=== PATIENT | male | born 1970 | race Caucasian/White ===

== ENCOUNTER 2016-06-27 16:42 | Inpatient (IN) | payer OTHER ==
[~2016-06-27] VITALS: Ht 188 cm; Wt 117.8 kg
[2016-06-27 16:43] VITALS: BP 184/87; PULSE 105; RESP 16; TEMP 97.9; O2SAT 95
[2016-06-27] MEDS ORDERED: SODIUM CHLOR 0.9% 1000 ML INJ 1,000 ML IV ONE (16:56)
[2016-06-27] MEDS ORDERED: PIPERACIL-TAZO 4.5 GM PREMIX 100 ML IV STA (16:56)
[2016-06-27] MEDS ORDERED: VANCOMYCIN INJ 1,000 MG in SODIUM CHLOR 0.9% 250 ML INJ 250 ML IV STA (16:56)
--- NOTE | 2016-06-27 17:05 | PD ---
HPI Chief Complaint: Diabetic Time Seen by Provider: 16:56 Travel History International Travel<30 days: No Contact w/Intl Traveler<30days: No Traveled to known affect area: No History of Present Illness HPI 45-year-old male with history of diabetes, has had a chronic left foot sore that is being followed by podiatry for several weeks, but was sent in by podiatry today because they are concern of possible underlying osteomyelitis. They would like him to be admitted for IV antibiotics and to get MRI scanning to rule out osteomyelitis. Modifying Factors: None Associated Signs & Symptoms: Left foot ulcer, diabetic foot ulcer, possible osteomyelitis Risk Factors: Diabetic PFSH Past Medical History Diabetes: Yes Social History Tobacco Use: No Allergies-Medications (Allergen,Severity, Reaction): Coded Allergies: No Known Allergies (Unverified , 06/27/16) Reported Meds & Prescriptions Reported Meds & Active Scripts Active Reported Multi For Him 50+ (Multiple Vitamins W/ Minerals) 1 Tab Tab 1 Tab PO DAILY Vitamin D3 (Cholecalciferol) 10,000 Unit Cap 10,000 Units PO DAILY Gabapentin 100 Mg Cap 200 Mg PO HS Losartan (Losartan Potassium) 50 Mg Tab 50 Mg PO DAILY Glimepiride 4 Mg Tab 4 Mg PO DAILY Take with breakfast or first main meal Crestor (Rosuvastatin Calcium) 40 Mg Tab 40 Mg PO HS Gemfibrozil 600 Mg Tab 600 Mg PO BIDAC Take 30 minutes prior to breakfast and dinner. Novolog Flexpen Inj (Insulin Aspart) 300 Unit/3 Ml Pen Units SQ TID Lantus Solostar Pen Inj (Insulin Glargine) 300 Unit/3 Ml Pen 40 Units SQ HS Review of Systems Except as stated in HPI: all other systems reviewed are Neg Physical Exam Narrative GENERAL: Well-nourished, well-developed middle age white male patient in no acute distress. SKIN: Warm and dry. HEAD: Normocephalic. NECK: Supple, trachea midline. CARDIOVASCULAR: Regular rate and rhythm without murmurs, gallops, or rubs. RESPIRATORY: Breath sounds equal bilaterally. No accessory muscle use. GASTROINTESTINAL: Abdomen soft, non-tender, nondistended. MUSCULOSKELETAL: No cyanosis, or edema. BACK: Nontender without obvious deformity. No CVA tenderness. Left foot: There is a notable 2 x 5 cm left foot ulcer with surrounding erythema and drainage. Data Data Last Documented VS Vital Signs Date Time Temp Pulse Resp B/P Pulse Ox O2 Delivery O2 Flow Rate FiO2 06/27/16 17:45 94 21 181/94 96 Nasal Cannula 2.0 06/27/16 16:43 97.9 Orders Complete Blood Count With Diff (06/27/16 16:56) Comprehensive Metabolic Panel (06/27/16 16:56) Lactic Acid Sepsis Protocol (06/27/16 16:56) Blood Culture (06/27/16 16:56) Blood Glucose (06/27/16 16:56) Ecg Monitoring (06/27/16 16:56) Iv Access Insert/Monitor (06/27/16 16:56) Oximetry (06/27/16 16:56) Oxygen Administration (06/27/16 16:56) Piperacil-Tazo 4.5 Gm Premix (Zosyn 4.5 (06/27/16 16:56) Vancomycin Inj (Vancomycin Inj) (06/27/16 16:56) Sodium Chlor 0.9% 1000 Ml Inj (Ns 1000 M (06/27/16 16:56) Insulin Human Regular Inj (Novolin R Inj (06/27/16 18:45) Labs Laboratory Tests Test 06/27/16 17:25 White Blood Count 12.7 TH/MM3 Red Blood Count 4.81 MIL/MM3 Hemoglobin 13.7 GM/DL Hematocrit 41.3 % Mean Corpuscular Volume 85.9 FL Mean Corpuscular Hemoglobin 28.6 PG Mean Corpuscular Hemoglobin 33.3 % Concent Red Cell Distribution Width 13.0 % Platelet Count 198 TH/MM3 Mean Platelet Volume 9.9 FL Neutrophils (%) (Auto) 85.2 % Lymphocytes (%) (Auto) 8.9 % Monocytes (%) (Auto) 5.1 % Eosinophils (%) (Auto) 0.4 % Basophils (%) (Auto) 0.4 % Neutrophils # (Auto) 10.9 TH/MM3 Lymphocytes # (Auto) 1.1 TH/MM3 Monocytes # (Auto) 0.6 TH/MM3 Eosinophils # (Auto) 0.1 TH/MM3 Basophils # (Auto) 0.0 TH/MM3 CBC Comment DIFF FINAL Differential Comment Sodium Level 128 MEQ/L Potassium Level 5.2 MEQ/L Chloride Level 97 MEQ/L Carbon Dioxide Level 19.0 MEQ/L Anion Gap 12 MEQ/L Blood Urea Nitrogen 29 MG/DL Creatinine 1.89 MG/DL Estimat Glomerular Filtration 39 ML/MIN Rate Random Glucose 697 MG/DL Lactic Acid Level 0.5 mmol/L Calcium Level 8.3 MG/DL Total Bilirubin 0.4 MG/DL Aspartate Amino Transf 11 U/L (AST/SGOT) Alanine Aminotransferase 23 U/L (ALT/SGPT) Alkaline Phosphatase 67 U/L Total Protein 6.8 GM/DL Albumin 2.6 GM/DL MDM Medical Decision Making Medical Screen Exam Complete: Yes Emergency Medical Condition: Yes Medical Record Reviewed: Yes Interpretation(s) Laboratory Tests Test 06/27/16 17:25 White Blood Count 12.7 TH/MM3 (4.0-11.0) Neutrophils (%) (Auto) 85.2 % (16.0-70.0) Lymphocytes (%) (Auto) 8.9 % (9.0-44.0) Neutrophils # (Auto) 10.9 TH/MM3 (1.8-7.7) Sodium Level 128 MEQ/L (136-145) Potassium Level 5.2 MEQ/L (3.5-5.1) Chloride Level 97 MEQ/L (98-107) Carbon Dioxide Level 19.0 MEQ/L (21.0-32.0) Blood Urea Nitrogen 29 MG/DL (7-18) Creatinine 1.89 MG/DL (0.60-1.30) Estimat Glomerular Filtration 39 ML/MIN (>89) Rate Random Glucose 697 MG/DL (74-106) Calcium Level 8.3 MG/DL (8.5-10.1) Aspartate Amino Transf 11 U/L (15-37) (AST/SGOT) Albumin 2.6 GM/DL (3.4-5.0) Differential Diagnosis Foot ulcer, rule out osteomyelitis, hyperglycemia, rule out metabolic issues Narrative Course Patient was sent in master pilot to be admitted for further treatment and to get MRI for osteomyelitis. IV antibiotics initiated in the ER after cultures were drawn. Lab work returns showing significant hyperglycemia. IV fluids and insulin was given in the ER. At this point, my plan would be to admit the patient for further treatment. The case was discussed with Dr. Prasad for admission. Diagnosis Primary Impression: Diabetic foot ulcer Admitting Information Admitting Physician Requests: Admit Adolph Peralta MD Jun 27, 2016 17:05
[2016-06-27 17:19] VITALS: O2SAT 93
[2016-06-27 17:45] VITALS: BP 181/94; PULSE 94; RESP 21; O2SAT 96
[2016-06-27 17:50] LABS: AUTOMATED NEUTROPHIL # 10.9 TH/MM3 (1.8-7.7); BASOPHIL % 0.4 % (0.0-2.0); EOSINOPHIL # 0.1 TH/MM3 (0-0.4); EOSINOPHIL % 0.4 % (0.0-4.0); HEMATOCRIT 41.3 % (39.0-51.0); HEMO FLAGS DIFF FINAL; LYMPH % 8.9 % (9.0-44.0); LYMPHOCYTE # 1.1 TH/MM3 (1.0-4.8); MEAN CELL VOLUME 85.9 FL (80.0-100.0); MEAN CORPUSCULAR HEMOGLOBIN 28.6 PG (27.0-34.0); MEAN CORPUSCULAR HGB CONC 33.3 % (32.0-36.0); MONO % 5.1 % (0.0-8.0); NEUT % 85.2 % (16.0-70.0); PLATELET COUNT 198 TH/MM3 (150-450); RED BLOOD COUNT 4.81 MIL/MM3 (4.50-5.90); WHITE BLOOD COUNT 12.7 TH/MM3 (4.0-11.0)
[2016-06-27] MEDS ORDERED: MULTTAB23 PO (17:58)
[2016-06-27] MEDS ORDERED: GABA100C4 PO (17:58)
[2016-06-27] MEDS ORDERED: ROSU40 PO (17:58)
[2016-06-27] MEDS ORDERED: GLIM4TAB PO (17:58)
[2016-06-27] MEDS ORDERED: CHOL1CAP24 PO (17:58)
[2016-06-27] MEDS ORDERED: NOVOINJ3 SQ (17:58)
[2016-06-27] MEDS ORDERED: LANTINJ SQ (17:58)
[2016-06-27] MEDS ORDERED: GEMF600T PO (17:58)
[2016-06-27] MEDS ORDERED: LOSA50TA PO (17:58)
[2016-06-27 18:17] LABS: ALKALINE PHOSPHATASE 67 U/L (45-117); ALT (GPT) 23 U/L (12-78); ANION GAP 12 MEQ/L (5-15); AST (GOT) 11 U/L (15-37); BLOOD UREA NITROGEN 29 MG/DL (7-18); CHLORIDE 97 MEQ/L (98-107); GLOMERULAR FILTRATION RATE 39 ML/MIN (>89); POTASSIUM 5.2 MEQ/L (3.5-5.1); SODIUM (NA) 128 MEQ/L (136-145); TOTAL BILIRUBIN ADULT 0.4 MG/DL (0.2-1.0)
[2016-06-27] MEDS ORDERED: INSULIN HUMAN REGULAR 1,000 UNITS/10 ML VIAL IV PUSH ONE (18:45)
[2016-06-27] MEDS ORDERED: NALOXONE HCL 0.4 MG/ML AMP IV PRN (19:45)
[2016-06-27] MEDS ORDERED: BISACODYL 10 MG SUPP PR PRN (19:45)
[2016-06-27] MEDS ORDERED: ONDANSETRON HCL 4 MG/2 ML VIAL IVP PRN (19:45)
[2016-06-27] MEDS ORDERED: SODIUM CHLORIDE 0.9% FLUSH 5 ML FLUSH FLUSH PRN (19:45)
[2016-06-27] MEDS ORDERED: Vancomycin Consult Pharmacy 1 EA OTHER SCH (19:45)
--- NOTE | 2016-06-27 19:56 | HHI.HP ---
HPI Service CP Hospitalists Primary Care Physician Non-Staff Admission Diagnosis diabetic foot ulcer/hyperglycemia Chief Complaint: patient sent by podiatry for left foot large ulcer infection for IV antibiotics Travel History International Travel<30 Days: No Contact w/Intl Traveler <30 Da: No Traveled to Known Affected Are: No History of Present Illness 45 y/o white male with history of diabetes with chronic left foot ulcer draining has had some debridement today and podiatry sent patient for admit and requests MRI and IV antibiotics. Patient with long standing dibetes and has had difficulty with insurance with coverage for medications is on flex pen and lantus and glucose is over 600. Patient does have pain to left foot with large ulcer draining and now has bandage. Review of Systems Musculoskeletal: COMPLAINS OF: Joint pain Past Family Social History Past Medical History insulin dependent diabetes ,hyperlipidemia,hypertension,neuropathy,pancreatitis times 4 Past Surgical History gallbladder foot injury in past Reported Medications Multi For Him 50+ (Multiple Vitamins W/ Minerals) 1 Tab Tab 1 Tab PO DAILY Vitamin D3 (Cholecalciferol) 10,000 Unit Cap 10,000 Units PO DAILY Gabapentin 100 Mg Cap 200 Mg PO HS Losartan (Losartan Potassium) 50 Mg Tab 50 Mg PO DAILY Glimepiride 4 Mg Tab 4 Mg PO DAILY Take with breakfast or first main meal Crestor (Rosuvastatin Calcium) 40 Mg Tab 40 Mg PO HS Gemfibrozil 600 Mg Tab 600 Mg PO BIDAC Take 30 minutes prior to breakfast and dinner. Novolog Flexpen Inj (Insulin Aspart) 300 Unit/3 Ml Pen Units SQ TID Lantus Solostar Pen Inj (Insulin Glargine) 300 Unit/3 Ml Pen 40 Units SQ HS Allergies: Coded Allergies: No Known Allergies (Unverified , 06/27/16) Social History NS,ND Physical Exam Vital Signs Vital Signs Date Time Temp Pulse Resp B/P Pulse Ox O2 Delivery O2 Flow Rate FiO2 06/27/16 17:45 94 21 181/94 96 Nasal Cannula 2.0 06/27/16 17:19 93 Room Air 06/27/16 16:43 97.9 105 16 184/87 95 Physical Exam GENERAL: This is a well-nourished, well-developed patient, in no apparent distress. SKIN: No rashes, ecchymoses or lesions. Cool and dry. HEAD: Atraumatic. Normocephalic. No temporal or scalp tenderness. EYES: Pupils equal round and reactive. Extraocular motions intact. No scleral icterus. No injection or drainage. ENT: Nose without bleeding, purulent drainage or septal hematoma. Throat without erythema, tonsillar hypertrophy or exudate. Uvula midline. Airway patent. NECK: Trachea midline. No JVD or lymphadenopathy. Supple, nontender, no meningeal signs. CARDIOVASCULAR: Regular rate and rhythm without murmurs, gallops, or rubs. RESPIRATORY: Clear to auscultation. Breath sounds equal bilaterally. No wheezes , rales, or rhonchi. GASTROINTESTINAL: Abdomen soft, non-tender, nondistended. No hepato-splenomegaly , or palpable masses. No guarding. MUSCULOSKELETAL: Extremities without clubbing, cyanosis, or edema. joint tenderness,no effusion, or no edema noted. No calf tenderness. Negative Homans sign bilaterally. 2 by 5cm left foot ulcer with erythema and drainage NEUROLOGICAL: Awake and alert. Cranial nerves II through XII intact. Motor and sensory grossly within normal limits. Five out of 5 muscle strength in all muscle groups. Normal speech. Laboratory Laboratory Tests Test 06/27/16 17:25 White Blood Count 12.7 Red Blood Count 4.81 Hemoglobin 13.7 Hematocrit 41.3 Mean Corpuscular Volume 85.9 Mean Corpuscular Hemoglobin 28.6 Mean Corpuscular Hemoglobin 33.3 Concent Red Cell Distribution Width 13.0 Platelet Count 198 Mean Platelet Volume 9.9 Neutrophils (%) (Auto) 85.2 Lymphocytes (%) (Auto) 8.9 Monocytes (%) (Auto) 5.1 Eosinophils (%) (Auto) 0.4 Basophils (%) (Auto) 0.4 Neutrophils # (Auto) 10.9 Lymphocytes # (Auto) 1.1 Monocytes # (Auto) 0.6 Eosinophils # (Auto) 0.1 Basophils # (Auto) 0.0 CBC Comment DIFF FINAL Differential Comment Sodium Level 128 Potassium Level 5.2 Chloride Level 97 Carbon Dioxide Level 19.0 Anion Gap 12 Blood Urea Nitrogen 29 Creatinine 1.89 Estimat Glomerular Filtration 39 Rate Random Glucose 697 Lactic Acid Level 0.5 Calcium Level 8.3 Total Bilirubin 0.4 Aspartate Amino Transf 11 (AST/SGOT) Alanine Aminotransferase 23 (ALT/SGPT) Alkaline Phosphatase 67 Total Protein 6.8 Albumin 2.6 Date/Time Procedure Status Source Growth 06/27/16 17:25 Aerobic Blood Culture Received Blood Peripheral Pending 06/27/16 17:25 Anaerobic Blood Culture Received Blood Peripheral Pending Result Diagram: 06/27/16 1725 06/27/16 1725 Course in er started on zoysn and vancomycin Assessment and Plan Problem List: (1) Diabetic foot ulcer Status: Acute Plan: continue zoysn and vancomycin and podiatry consult and wound evaluation (2) Uncontrolled diabetes mellitus Status: Chronic Plan: continue patient current meds and add high novolog sliding scale (3) Hypertension Status: Chronic Plan: continue losartan Assessment and Plan further plan as case develops Code Status full Discussed Condition With patient Physician Certification 2 Midnight Certification Type: Admission for Inpatient Services Order for Inpatient Services The services are ordered in accordance with Medicare regulations or non- Medicare payer requirements, as applicable. In the case of services not specified as inpatient-only, they are appropriately provided as inpatient services in accordance with the 2-midnight benchmark. Estimated LOS (days): 3 3 days is the estimated time the patient will need to remain in the hospital, assuming treatment plan goals are met and no additional complications. Post-Hospital Plan: Not yet determined Joshua Amaya MD Jun 27, 2016 19:56
[2016-06-27] MEDS ORDERED: VANCOMYCIN 1,000 MG/NS 250 ML IV ONE ×2 (21:00)
[2016-06-27] MEDS: INSULIN DETEMIR 100 UNITS/ML VIAL SQ SCH (21:19)
[2016-06-27] MEDS: SODIUM CHLORIDE 0.9% FLUSH 5 ML FLUSH FLUSH SCH (21:19)
[2016-06-27] MEDS: ENOXAPARIN SODIUM 30 MG/0.3 ML SYRINGE SQ SCH (21:19)
[2016-06-27] MEDS: ATORVASTATIN 80 MG TAB PO SCH (21:19)
[2016-06-27] MEDS: GABAPENTIN 100 MG CAP PO SCH (21:19)
[2016-06-27] MEDS: HYDROmorphone HCL PF 1 MG/ML VIAL IV PRN (21:20)
[2016-06-27] MEDS: INSULIN ASPART SUPPLEMENTAL SCALE SQ SCH (21:44)
[2016-06-27 22:29] VITALS: BP 164/89; PULSE 90; RESP 18; TEMP 97.8; O2SAT 95
[2016-06-28] MEDS: HYDROmorphone HCL PF 1 MG/ML VIAL IV PRN ×5 (01:06→23:06)
[2016-06-28] MEDS ORDERED: PIPERACIL-TAZO 3.375 GM PREMIX 50 ML IV SCH (02:00)
[2016-06-28] MEDS: INSULIN ASPART SUPPLEMENTAL SCALE SQ SCH ×4 (06:04→21:00)
[2016-06-28] MEDS: GEMFIBROZIL 600 MG TAB PO SCH ×2 (06:04→16:47)
[2016-06-28 06:19] VITALS: BP 139/83; PULSE 74; RESP 18; TEMP 97.8; O2SAT 94
[2016-06-28 06:41] LABS: AUTOMATED NEUTROPHIL # 5.4 TH/MM3 (1.8-7.7); BASOPHIL # 0.1 TH/MM3 (0-0.2); BASOPHIL % 0.6 % (0.0-2.0); EOSINOPHIL # 0.2 TH/MM3 (0-0.4); EOSINOPHIL % 2.3 % (0.0-4.0); HEMATOCRIT 38.2 % (39.0-51.0); HEMO FLAGS DIFF FINAL; LYMPH % 24.7 % (9.0-44.0); LYMPHOCYTE # 2.1 TH/MM3 (1.0-4.8); MEAN CELL VOLUME 81.9 FL (80.0-100.0); MEAN CORPUSCULAR HEMOGLOBIN 28.4 PG (27.0-34.0); MEAN CORPUSCULAR HGB CONC 34.7 % (32.0-36.0); MONO % 9.9 % (0.0-8.0); NEUT % 62.5 % (16.0-70.0); PLATELET COUNT 213 TH/MM3 (150-450); RED BLOOD COUNT 4.67 MIL/MM3 (4.50-5.90); RED CELL DISTRIBUTION WIDTH 13.2 % (11.6-17.2); WHITE BLOOD COUNT 8.7 TH/MM3 (4.0-11.0)
[2016-06-28 06:46] LABS: ALKALINE PHOSPHATASE 58 U/L (45-117); ALT (GPT) 24 U/L (12-78); ANION GAP 8 MEQ/L (5-15); AST (GOT) 13 U/L (15-37); BICARBONATE 22.7 MEQ/L (21.0-32.0); BLOOD UREA NITROGEN 26 MG/DL (7-18); CHLORIDE 108 MEQ/L (98-107); GLOMERULAR FILTRATION RATE 53 ML/MIN (>89); POTASSIUM 4.2 MEQ/L (3.5-5.1); SODIUM (NA) 139 MEQ/L (136-145); TOTAL BILIRUBIN ADULT 0.3 MG/DL (0.2-1.0)
--- NOTE | 2016-06-28 08:33 | MB ---
cc: MINDY TOBIN DATE OF CONSULTATION: 06/28/2016 CHIEF COMPLAINT Left foot diabetic ulceration. HISTORY OF PRESENT ILLNESS Mr. Guallpa is a 45-year-old male patient who met my partner Dr. Cisco Pagan yesterday in the office for the first time. He presented to the office with a 3-day history of cellulitis to the left foot and a several week history of a large callus to the left foot which he states had no drainage or cellulitis prior to 3 days beforehand. He was seen by his PCP who sent him to the urgent care at [facility] and they performed a culture there and x-rays as well and advised him to follow up with a institutional nutrition consultant. Once he was seen by Dr. Pagan in the office, Dr. Pagan felt that the cellulitis encompassed too much of the leg and there was questionable deep probing which needed further evaluation with an MRI. He suggested admission to the hospital. The patient presented at [place] last night for admission. His white count has decreased. He is afebrile and he says he is still having some discomfort but pain has decreased overall. He states that even though he has insurance now, he has still had a hard time keeping his glucose levels in check. He states that it has always been a struggle for him for the last 10 years since he was diagnosed with diabetes. He denies any nausea, vomiting, fever, headaches or chills. PAST MEDICAL HISTORY Past medical history includes: 1. Insulin dependent diabetes mellitus. 2. Hyperlipidemia. 3. Hypertension. 4. Neuropathy. 5. Pancreatitis x 4. PAST SURGICAL HISTORY Past surgical history includes: 1. Gallbladder removal. 2. Foot injury, surgery unknown. MEDICATION Please see list. ALLERGIES NO KNOWN DRUG ALLERGIES. SOCIAL HISTORY The patient denies smoking or drug abuse. He works as a musician. VITAL SIGNS: Temperature is 97.8, which is also T-max. Pulse is 73, respiratory rate 18, blood pressure 139/83, pulse ox 94% O2 on room air. LABORATORY DATA White count is 8.7, down from 12.7, hemoglobin 13.3, hematocrit 38.2, platelets 213, sodium 139, potassium 4.2, chloride 108, carbon dioxide 22.7, BUN 26, creatinine 1.45, glucose 245, it was 697 on admission. PHYSICAL EXAMINATION On physical exam the patient has bilateral palpable DP and PT pulses. Cap fill time is less than 3 seconds. Gross sensation is intact. Protective sensation is diminished. Right foot is unremarkable. Left foot does have some widening of the mid foot likely due to this old injury on the lateral and plantar lateral aspect around the fifth metatarsal base. There is noted heavy callusing after debridement. There is a stage II full thickness granular base ulceration with some fibrotic tissue and some areas that to probe deeper but none which probed to bone. Total wound size is approximately 3 cm x 4 cm x 0.15 cm. Mild serosanguineous drainage. No malodor. There is some erythema around the wound site itself and on the dorsal aspect of the foot but is greatly reduced from yesterday's levels. ASSESSMENT/PLAN 1. Stage II ulceration with resolving cellulitis. 2. MRI pending. 3. X-rays pending. 4. Wound cultures to be obtained from [facility], nursing staff is working on it. 5. Daily wound care. Orders have been placed for nursing staff. 6. The patient can weight bear as tolerated with emphasis on heel weightbearing in a surgical shoe. 7. Continue IV antibiotics. 8. If MRI is negative for any osteomyelitis then would recommend 10-14 days of p.o. antibiotics. If MRI is positive for any osteomyelitis will talk to the patient about IV antibiotics versus surgical intervention. Thank you for this consultation. Mindy CHRISTIANSON/TLL /7:54 AM /8:17 AM
[2016-06-28] MEDS ORDERED: INFLUENZA VIRUS VACCINE (QUADRIVALENT) 0.5 ML SYR IM ONE (09:00)
[2016-06-28] MEDS: CHOLECALCIFEROL (VIT D3) 5000 UNIT CAP PO SCH (09:04)
[2016-06-28] MEDS: LOSARTAN 50 MG TAB PO SCH (09:04)
[2016-06-28] MEDS: SODIUM CHLORIDE 0.9% FLUSH 5 ML FLUSH FLUSH SCH ×2 (09:04→21:00)
[2016-06-28] MEDS: PIPERACIL-TAZO 3.375 GM PREMIX 50 ML IV SCH ×2 (09:05→16:49)
[2016-06-28] MEDS: MUPIROCIN 2% OINT 22 GM TUBE TOPICAL SCH ×2 (09:11→22:25)
[2016-06-28] MEDS: MULTIVITAMIN HEMATINIC THERAPEUTIC TAB PO SCH (09:11)
[2016-06-28] MEDS: VANCOMYCIN INJ 1,500 MG in SODIUM CHLORID 0.9% 500 ML INJ 500 ML IV SCH ×2 (09:12→22:25)
[2016-06-28] MEDS: GLIMEPIRIDE 4 MG TAB PO SCH (09:19)
--- NOTE | 2016-06-28 10:38 | RADRPT ---
EXAM DATE/TIME: 06/28/2016 09:18 [facility] COMPARISON: No previous studies available for comparison. INDICATIONS : Diabetic foot ulcer. MEDICAL HISTORY : Diabetes mellitus type II. Fx 5th metatarsal 5 years ago. SURGICAL HISTORY : None. ENCOUNTER: Initial ACUITY: 1 day PAIN SCORE: 3/10 LOCATION: Left lateral foot. FINDINGS: 3 views of the left foot. Deformity of the third, fourth, and fifth metatarsals at the bases. There i s evidence of prior fracture with bone callus formation. No focal bone erosion identified. No acute f racture identified. Alignment at the tarsometatarsal joints within normal limits. CONCLUSION: Proximal third fourth and fifth metatarsal fracture deformities with evidence of advanced bone bridgi ng/bone callus. No evidence of bone erosion. Pro Ribeiro MD on June 28, 2016 at 10:34 Board Certified Radiologist. This report was verified electronically.
[2016-06-28 11:15] VITALS: BP 163/86; PULSE 75; RESP 20; TEMP 97.9; O2SAT 94
[2016-06-28 13:00] VITALS: BP 141/79
[2016-06-28] MEDS ORDERED: GADODIAMIDE PF 287 MG/ML 5 ML VIAL (for RAD MRI) IV PUSH ONE (15:44)
[2016-06-28] MEDS ORDERED: GADODIAMIDE PF 287 MG/ML 10 ML VIAL (for RAD MRI) IV ONE (16:10)
--- NOTE | 2016-06-28 16:12 | HHI.PR ---
Subjective Remarks Pt has been afebrile. Denies any pain currently Objective Vitals Vital Signs Date Time Temp Pulse Resp B/P Pulse Ox O2 Delivery O2 Flow Rate FiO2 06/28/16 13:00 141/79 06/28/16 11:15 97.9 75 20 163/86 94 06/28/16 06:19 97.8 74 18 139/83 94 06/28/16 01:36 14 06/27/16 22:29 97.8 90 18 164/89 95 06/27/16 17:45 94 21 181/94 96 Nasal Cannula 2.0 06/27/16 17:19 93 Room Air 06/27/16 16:43 97.9 105 16 184/87 95 Result Diagram: 06/28/16 0532 06/28/16 0532 Other Results Laboratory Tests Test 06/27/16 06/28/16 17:25 05:32 White Blood Count 12.7 TH/MM3 8.7 TH/MM3 Red Blood Count 4.81 MIL/MM3 4.67 MIL/MM3 Hemoglobin 13.7 GM/DL 13.3 GM/DL Hematocrit 41.3 % 38.2 % Mean Corpuscular Volume 85.9 FL 81.9 FL Mean Corpuscular Hemoglobin 28.6 PG 28.4 PG Mean Corpuscular Hemoglobin 33.3 % 34.7 % Concent Red Cell Distribution Width 13.0 % 13.2 % Platelet Count 198 TH/MM3 213 TH/MM3 Mean Platelet Volume 9.9 FL 9.9 FL Neutrophils (%) (Auto) 85.2 % 62.5 % Lymphocytes (%) (Auto) 8.9 % 24.7 % Monocytes (%) (Auto) 5.1 % 9.9 % Eosinophils (%) (Auto) 0.4 % 2.3 % Basophils (%) (Auto) 0.4 % 0.6 % Neutrophils # (Auto) 10.9 TH/MM3 5.4 TH/MM3 Lymphocytes # (Auto) 1.1 TH/MM3 2.1 TH/MM3 Monocytes # (Auto) 0.6 TH/MM3 0.9 TH/MM3 Eosinophils # (Auto) 0.1 TH/MM3 0.2 TH/MM3 Basophils # (Auto) 0.0 TH/MM3 0.1 TH/MM3 CBC Comment DIFF FINAL DIFF FINAL Differential Comment Sodium Level 128 MEQ/L 139 MEQ/L Potassium Level 5.2 MEQ/L 4.2 MEQ/L Chloride Level 97 MEQ/L 108 MEQ/L Carbon Dioxide Level 19.0 MEQ/L 22.7 MEQ/L Anion Gap 12 MEQ/L 8 MEQ/L Blood Urea Nitrogen 29 MG/DL 26 MG/DL Creatinine 1.89 MG/DL 1.45 MG/DL Estimat Glomerular Filtration 39 ML/MIN 53 ML/MIN Rate Random Glucose 697 MG/DL 245 MG/DL Lactic Acid Level 0.5 mmol/L Calcium Level 8.3 MG/DL 8.8 MG/DL Total Bilirubin 0.4 MG/DL 0.3 MG/DL Aspartate Amino Transf 11 U/L 13 U/L (AST/SGOT) Alanine Aminotransferase 23 U/L 24 U/L (ALT/SGPT) Alkaline Phosphatase 67 U/L 58 U/L Total Protein 6.8 GM/DL 6.1 GM/DL Albumin 2.6 GM/DL 2.4 GM/DL Imaging Last Impressions Foot X-Ray 06/28/16 0000 Signed Impressions: Service Date/Time: June 09:18 - CONCLUSION: Proximal third fourth and fifth metatarsal fracture deformities with evidence of advanced bone bridging/bone callus. No evidence of bone erosion. Pro Ribeiro MD Objective Remarks General: NAD, AAox3 Chest: CTA bilaterally Cardiac: Regular Abd: +BS, soft ND/NT Ext: Left foot bandages are c/d/i, 2+ pedal pulses bilaterally A/P Problem List: (1) Diabetic foot ulcer Status: Acute Plan: - Pt admitted with left foot ulceration and cellulitis - WBC count 12.7 at admission. - Pt was started on Zosyn and Vancomycin in the ED and this was continued at admission. - Appreciate Podiatry consultation. - X-ray left foot (06/28/16) --> Proximal third fourth and fifth metatarsal fracture deformities with evidence of advanced bone bridging/bone callus. No evidence of bone erosion. - MRI Left foot is pending. - Monitor labs - Blood cultures with NGTD - Wound culture was taken at [facility] urgent care prior to admission - Try to improve glycemic control to help with wound healing - Supportive care - DVT prophylaxis Lovenox (2) Uncontrolled diabetes mellitus Status: Chronic Plan: - Pt with poorly controlled diabetes - Currently he is on Amaryl 4mg po daily, Levemir 40 units HS and high dose NovoLog SSI - Diabetic diet - Accu checks - Check Hgb A1C (3) Hypertension Status: Chronic Plan: - Stable. - Continue Losartan Assessment and Plan Patient examined. Assessment and plan formulated with Deirdre Flanagan PA-C. I agree with the above. Problem Qualifiers (1) Uncontrolled diabetes mellitus: Qualified Code: E11.621 - Uncontrolled type 2 diabetes mellitus with foot ulcer , without long-term current use of insulin (2) Hypertension: Qualified Code: I10 - Essential hypertension Deirdre Flanagan Jun 28, 2016 16:12 Taco Villela DO Jul 04, 2016 18:51
[2016-06-28 16:29] VITALS: BP 165/87; PULSE 88; RESP 20; TEMP 98.1; O2SAT 96
--- NOTE | 2016-06-28 16:36 | RADRPT ---
EXAM DATE/TIME: 06/28/2016 15:01 [facility] COMPARISON: No previous studies available for comparison. INDICATIONS : Left foot ulcer. CONTRAST: 23 cc Omniscan (gadodiamide) IV MEDICAL HISTORY : Hypertension. Diabetes mellitus type 2. Hypercholesterolemia. SURGICAL HISTORY : Cholecystectomy. ENCOUNTER: Initial ACUITY: 1 week PAIN SCORE: 3/10 LOCATION: middle 5th metatarsal area TECHNIQUE: Multiplanar, multisequence MRI examination was performed without contrast and after the intravenous a dministration of gadolinium. FINDINGS: Ill-defined soft tissue enhancement is seen at the lateral midfoot overlying the fifth metatarsal sha ft and fifth metatarsal base. There is diffuse soft tissue edema in this region. This is the area of cutaneous ulceration. No organized drainable fluid collection identified. There is evidence of an old fracture deformity of the proximal fifth metatarsal shaft immediately gilles p to the area of soft tissue edema and cutaneous ulceration. Advanced bone bridging and bone callus f ormation is seen at the fracture site. Lateral convexity of the bone is seen in the region of the bg kumar. There is mild reactive bony edema in the lateral dorsal margin of the fifth metatarsal base at t he level of fracture. Minimal contrast enhancement in this region on the postcontrast images. No conf luent signal abnormality on the pre-contrast T1-weighted images. There is a nondisplaced fracture of the second metatarsal base with mild surrounding bony edema. Smal l osteophytes at all of the tarsometatarsal joints. Diffuse atrophy of the intrinsic foot muscles. Sinus Tarsi within normal limits. All of the visualize d tendons are intact. Plantar aponeurosis is intact. CONCLUSION: 1. Old fracture deformity of the proximal fifth metatarsal base with extensive bone callus. This find ing may have represented a traumatic fracture or stress fracture. 2. Ill-defined soft tissue edema and enhancement lateral to the fifth metatarsal fracture. Cutaneous ulceration also seen in this region. Findings suggest cellulitis in the proper clinical setting. No e vidence of abscess in the soft tissues. Mild adjacent bony edema in the lateral dorsal aspect of the proximal fifth metatarsal shaft. Differential for this finding is reactive change from adjacent soft tissue infection versus early osteomyelitis. No confluent signal abnormality on the precontrast T1-we ighted images to indicate definitive osteomyelitis. 3. Second metatarsal base fracture likely acute to subacute. Pro Ribeiro MD on June 28, 2016 at 16:22 Board Certified Radiologist. This report was verified electronically.
--- NOTE | 2016-06-28 18:32 | PD.POD ---
Subjective Podiatric Problems Left foot stage II ulcer with cellulitis and probable OM. Patient states he is having less pain and feels the wound looks better. He discussed the MRI results with already and is agreeable to the PICC line for 6 weeks. He denies any n/v/f/h/c/sob. Pain score: 3 Past Med/Surg/Social History Social History Smoking Status: Never Smoker Objective Vital Signs Vital Signs Date Time Temp Pulse Resp B/P Pulse Ox O2 Delivery O2 Flow Rate FiO2 06/28/16 16:29 98.1 88 20 165/87 96 06/28/16 13:00 141/79 06/28/16 11:15 97.9 75 20 163/86 94 06/28/16 06:19 97.8 74 18 139/83 94 06/28/16 01:36 14 06/27/16 22:29 97.8 90 18 164/89 95 Coded Allergies: No Known Allergies (Unverified , 06/27/16) Exam-Podiatry Remarks Physical exam remains unchanged from consult exam with the exception of the left foot erythema which appears resolved. The wound is approximately 3cm x 4cm x 0.25 cm with a mixed fibrogranular wound bed, no erythema, mild serous drainage, no malodor. Assessment & Plan A/P 1) Left foot stage II diabetic ulcer, resolved cellulitis, suspected OM - to arrange for PICC line and 6 weeks iv abx -Patient feels he can handle dressings changes and does not need HHC, we reviewed how to properly change the dressings today -Patient has a surgical shoe already and we discussed limiting WBing to heal the wound faster -He is ok to d/c from my stand point once outpt abx are arrange -Follow up with next week Mindy Johnson DPM Jun 28, 2016 18:32
[2016-06-28 20:42] VITALS: BP 150/84; PULSE 86; RESP 18; TEMP 98.2; O2SAT 97
[2016-06-28] MEDS: GABAPENTIN 100 MG CAP PO SCH (21:00)
[2016-06-28] MEDS: INSULIN DETEMIR 100 UNITS/ML VIAL SQ SCH (21:00)
[2016-06-28] MEDS: ATORVASTATIN 80 MG TAB PO SCH (21:00)
[2016-06-28] MEDS: ENOXAPARIN SODIUM 30 MG/0.3 ML SYRINGE SQ SCH (21:00)
[2016-06-28 22:11] LABS: HEMOGLOBIN A1a 1.4 %; HEMOGLOBIN Ao 70.3 %; HEMOGLOBIN F 3.7 %; HEMOGLOBIN LA1C 2.9 %; HEMOGLOBIN P3 5.9 %
[2016-06-29] MEDS: PIPERACIL-TAZO 3.375 GM PREMIX 50 ML IV SCH ×2 (01:24→09:30)
[2016-06-29 03:25] VITALS: BP 128/82; PULSE 85; RESP 18; TEMP 97.8; O2SAT 97
[2016-06-29] MEDS: GEMFIBROZIL 600 MG TAB PO SCH ×2 (05:18→16:50)
[2016-06-29] MEDS: HYDROmorphone HCL PF 1 MG/ML VIAL IV PRN ×4 (05:18→20:06)
[2016-06-29 06:25] LABS: AUTOMATED NEUTROPHIL # 5.6 TH/MM3 (1.8-7.7); BASOPHIL # 0.1 TH/MM3 (0-0.2); BASOPHIL % 0.7 % (0.0-2.0); EOSINOPHIL # 0.2 TH/MM3 (0-0.4); EOSINOPHIL % 2.1 % (0.0-4.0); HEMATOCRIT 37.7 % (39.0-51.0); HEMO FLAGS DIFF FINAL; LYMPH % 24.7 % (9.0-44.0); LYMPHOCYTE # 2.1 TH/MM3 (1.0-4.8); MEAN CELL VOLUME 82.3 FL (80.0-100.0); MEAN CORPUSCULAR HEMOGLOBIN 28.8 PG (27.0-34.0); MONO % 7.6 % (0.0-8.0); NEUT % 64.9 % (16.0-70.0); PLATELET COUNT 201 TH/MM3 (150-450); RED BLOOD COUNT 4.58 MIL/MM3 (4.50-5.90); RED CELL DISTRIBUTION WIDTH 13.1 % (11.6-17.2); WHITE BLOOD COUNT 8.6 TH/MM3 (4.0-11.0)
[2016-06-29 06:34] LABS: POTASSIUM 3.7 MEQ/L (3.5-5.1)
[2016-06-29] MEDS: INSULIN ASPART SUPPLEMENTAL SCALE SQ SCH ×4 (06:34→20:16)
[2016-06-29 07:27] VITALS: BP 140/88; PULSE 78; RESP 20; TEMP 98; O2SAT 95
--- NOTE | 2016-06-29 08:56 | HHI.PR ---
Subjective Remarks Pt without any specific complaints today Blood glucose elevated last night at 466 He received Levemir 40 units HS and blood sugars this morning were improved to 141 Objective Vitals Vital Signs Date Time Temp Pulse Resp B/P Pulse Ox O2 Delivery O2 Flow Rate FiO2 06/29/16 07:27 98.0 78 20 140/88 95 06/29/16 05:34 12 06/29/16 03:25 97.8 85 18 128/82 97 06/28/16 20:42 98.2 86 18 150/84 97 06/28/16 16:29 98.1 88 20 165/87 96 06/28/16 13:00 141/79 06/28/16 11:15 97.9 75 20 163/86 94 Result Diagram: 06/29/16 0510 06/29/16 0510 Other Results Laboratory Tests Test 06/27/16 06/28/16 06/28/16 06/29/16 17:25 05:32 22:50 05:10 White Blood Count 12.7 TH/MM3 8.7 TH/MM3 8.6 TH/MM3 Red Blood Count 4.81 MIL/MM3 4.67 MIL/MM3 4.58 MIL/MM3 Hemoglobin 13.7 GM/DL 13.3 GM/DL 13.2 GM/DL Hematocrit 41.3 % 38.2 % 37.7 % Mean Corpuscular Volume 85.9 FL 81.9 FL 82.3 FL Mean Corpuscular Hemoglobin 28.6 PG 28.4 PG 28.8 PG Mean Corpuscular Hemoglobin 33.3 % 34.7 % 35.0 % Concent Red Cell Distribution Width 13.0 % 13.2 % 13.1 % Platelet Count 198 TH/MM3 213 TH/MM3 201 TH/MM3 Mean Platelet Volume 9.9 FL 9.9 FL 9.6 FL Neutrophils (%) (Auto) 85.2 % 62.5 % 64.9 % Lymphocytes (%) (Auto) 8.9 % 24.7 % 24.7 % Monocytes (%) (Auto) 5.1 % 9.9 % 7.6 % Eosinophils (%) (Auto) 0.4 % 2.3 % 2.1 % Basophils (%) (Auto) 0.4 % 0.6 % 0.7 % Neutrophils # (Auto) 10.9 TH/MM3 5.4 TH/MM3 5.6 TH/MM3 Lymphocytes # (Auto) 1.1 TH/MM3 2.1 TH/MM3 2.1 TH/MM3 Monocytes # (Auto) 0.6 TH/MM3 0.9 TH/MM3 0.7 TH/MM3 Eosinophils # (Auto) 0.1 TH/MM3 0.2 TH/MM3 0.2 TH/MM3 Basophils # (Auto) 0.0 TH/MM3 0.1 TH/MM3 0.1 TH/MM3 CBC Comment DIFF FINAL DIFF FINAL DIFF FINAL Differential Comment Sodium Level 128 MEQ/L 139 MEQ/L 140 MEQ/L Potassium Level 5.2 MEQ/L 4.2 MEQ/L 3.7 MEQ/L Chloride Level 97 MEQ/L 108 MEQ/L 107 MEQ/L Carbon Dioxide Level 19.0 MEQ/L 22.7 MEQ/L 23.0 MEQ/L Anion Gap 12 MEQ/L 8 MEQ/L 10 MEQ/L Blood Urea Nitrogen 29 MG/DL 26 MG/DL 23 MG/DL Creatinine 1.89 MG/DL 1.45 MG/DL 1.34 MG/DL Estimat Glomerular Filtration 39 ML/MIN 53 ML/MIN 58 ML/MIN Rate Random Glucose 697 MG/DL 245 MG/DL 466 MG/DL 167 MG/DL Lactic Acid Level 0.5 mmol/L Calcium Level 8.3 MG/DL 8.8 MG/DL 8.6 MG/DL Total Bilirubin 0.4 MG/DL 0.3 MG/DL Aspartate Amino Transf 11 U/L 13 U/L (AST/SGOT) Alanine Aminotransferase 23 U/L 24 U/L (ALT/SGPT) Alkaline Phosphatase 67 U/L 58 U/L Total Protein 6.8 GM/DL 6.1 GM/DL Albumin 2.6 GM/DL 2.4 GM/DL Hemoglobin A1c 15.9 % Magnesium Level 2.0 MG/DL Imaging Last Impressions Foot X-Ray 06/28/16 0000 Signed Impressions: Service Date/Time: June 09:18 - CONCLUSION: Proximal third fourth and fifth metatarsal fracture deformities with evidence of advanced bone bridging/bone callus. No evidence of bone erosion. Pro Ribeiro MD Foot MRI 06/28/16 0000 Signed Impressions: Service Date/Time: June 15:01 - CONCLUSION: 1. Old fracture deformity of the proximal fifth metatarsal base with extensive bone callus. This finding may have represented a traumatic fracture or stress fracture. 2. Ill-defined soft tissue edema and enhancement lateral to the fifth metatarsal fracture. Cutaneous ulceration also seen in this region. Findings suggest cellulitis in the proper clinical setting. No evidence of abscess in the soft tissues. Mild adjacent bony edema in the lateral dorsal aspect of the proximal fifth metatarsal shaft. Differential for this finding is reactive change from adjacent soft tissue infection versus early osteomyelitis. No confluent signal abnormality on the precontrast T1-weighted images to indicate definitive osteomyelitis. 3. Second metatarsal base fracture likely acute to subacute. Pro Ribeiro MD Objective Remarks General: NAD, AAox3 Chest: CTA bilaterally Cardiac: Regular Abd: +BS, soft ND/NT Ext: Left foot bandages are c/d/i, 2+ pedal pulses bilaterally A/P Problem List: (1) Diabetic foot ulcer Status: Acute Plan: - Pt admitted with left foot ulceration and cellulitis - WBC count 12.7 at admission. - Pt was started on Zosyn and Vancomycin in the ED and this was continued at admission. - Appreciate Podiatry consultation. - X-ray left foot (06/28/16) --> Proximal third fourth and fifth metatarsal fracture deformities with evidence of advanced bone bridging/bone callus. No evidence of bone erosion. - MRI Left foot (06/28/16) --> Old fracture deformity of the proximal fifth metatarsal base with extensive bone callus. This finding may have represented a traumatic fracture or stress fracture. Ill- defined soft tissue edema and enhancement lateral to the fifth metatarsal fracture. Cutaneous ulceration also seen in this region. No evidence of abscess in the soft tissues. Mild adjacent bony edema in the lateral dorsal aspect of the proximal fifth metatarsal shaft. Differential for this finding is reactive change from adjacent soft tissue infection versus early osteomyelitis. Second metatarsal base fracture likely acute to subacute. - Pt will need PICC line placement for continued IV antibiotics. Will have to continue broad spectrum treatment with Vancomycin as we do not have a culture. Wound culture was taken at [facility] urgent care prior to admission is not available in outpt EHR at this time. - Blood cultures with NGTD - Try to improve glycemic control to help with wound healing - Supportive care - [facility] to be ordered for IV Abx, wound care and monitoring labs - DVT prophylaxis Lovenox (2) Uncontrolled diabetes mellitus Status: Chronic Plan: - Pt with poorly controlled diabetes - Currently he is on Amaryl 4mg po daily, Levemir 40 units HS and high dose NovoLog SSI - Change Levemir to 20units BID - Diabetic diet - Accu checks - Hgb A1C is 15.9% - Pt will need close followup with his PCP for maintaining better control of his blood sugars. (3) Hypertension Status: Chronic Plan: - Stable. - Continue Losartan Assessment and Plan Patient examined. Assessment and plan formulated with Deirdre Flanagan PA-C. I agree with the above. Problem Qualifiers (1) Uncontrolled diabetes mellitus: Qualified Code: E11.621 - Uncontrolled type 2 diabetes mellitus with foot ulcer , without long-term current use of insulin (2) Hypertension: Qualified Code: I10 - Essential hypertension Deirdre Flanagan Jun 29, 2016 08:56 Taco Villela DO Jul 04, 2016 18:54
[2016-06-29] MEDS: LOSARTAN 50 MG TAB PO SCH (09:30)
[2016-06-29] MEDS: GLIMEPIRIDE 4 MG TAB PO SCH (09:30)
[2016-06-29] MEDS: MULTIVITAMIN HEMATINIC THERAPEUTIC TAB PO SCH (09:30)
[2016-06-29] MEDS: CHOLECALCIFEROL (VIT D3) 5000 UNIT CAP PO SCH (09:30)
[2016-06-29] MEDS: SODIUM CHLORIDE 0.9% FLUSH 5 ML FLUSH FLUSH SCH ×2 (09:31→20:16)
[2016-06-29] MEDS: MUPIROCIN 2% OINT 22 GM TUBE TOPICAL SCH ×2 (09:45→20:17)
[2016-06-29] MEDS ORDERED: VANC1000P IV (10:53)
--- NOTE | 2016-06-29 10:58 | HHI.FF ---
Face to Face Verification Diagnosis: (1) Hypertension (2) Diabetic foot ulcer (3) Uncontrolled diabetes mellitus Home Health Nursing Order: Medical education Signs/symptoms of disease process Diabetic education Medication education-adverse effect Wound care and dressing changes Nursing assessment with vital signs IV medication administration Instructions: IV vancomycin 2g daily. Pharmacy to manage peak and trough. I have seen patient Timmy Guallpa on 06/29/16. My clinical findings support the need for the requested home health care services because: Med compliance is questionable Limited ability to care for self Need for psychosocial assistance Infection w/ risk of complications Injectable med education/admin I certify that my clinical findings support that this patient is homebound because: Need for psychosocial assistance Taco Villela DO Jun 29, 2016 10:57
--- NOTE | 2016-06-29 11:00 | HHI.FF ---
Infusion Therapy Location of Infusion Therapy: Home Health Care IV Infusion Order Patient Information Appointment Date: Jun 30, 2016 Patient Weight 115.91 kg Diagnosis: (1) Diabetic foot ulcer Coded Allergies: No Known Allergies (Unverified , 06/27/16) Administer Medication Vancomycin 2 grams IV q 24 hours Start Treatment: Jun 30, 2016 Stop Treatment: Aug 11, 2016 Additional Information Venous access: PICC Line Additional Instructions [x] Peripheral flush and dressing changes per protocol [x] Implanted port and central airline stewardess: * Implanted port: 10 ml Normal Saline followed by 5 ml Heparin 100 units/ml Heparin flush after each use and monthly to maintain. [] May leave port accessed during therapy. [] May leave peripheral site accessed for duration of therapy. [x] If patient has SOB or respiratory distress, check oxygen saturation. If less than 90% or clinical signs of respiratory distress, administer oxygen at 2 L/min. via nasal cannula and notify physician. [x] Anaphylaxis/Reaction orders: * Stop infusion. * Keep IV line open with saline flush. * Notify physician. * Monitor vital signs every 15 minutes until symptoms resolve. * Check Oxygen saturation; Oxygen at 2 L/min. via nasal cannula if less than 90% or clinical signs of respiratory distress. * Administer diphenhydramine (Benadryl) 25 mg IV STAT, (unless patient has received as pre-med). May repeat once, if necessary. * Solu-Cortef 250 mg IVP over 30-60 seconds, use 100 mg vials for each dissolution. * Epinephrine (1mg/1 ml) 0.3 mg subcutaneously or IVP now with any signs of respiratory distress. * Check with physician for new additional pre-med orders if patient is re- challenged or re-treated. [x] May remove PICC line when treatment complete, after confirming with Physician. [x] If the patient is admitted to the hospital, the ED, or transferred via [facility] , complete transfer form including medication reconciliation order sheet. Laboratory Tests Weekly Labs: BMP, CBC w/diff, Vancomycin Trough, Vancomycin Peaks Additional Information out patient pharmacy to manage peak and trough vancomycin level Tcao Villela DO Jun 29, 2016 11:00
[2016-06-29 11:11] VITALS: BP 186/100; PULSE 87; RESP 18; TEMP 98; O2SAT 96
[2016-06-29] MEDS: VANCOMYCIN INJ 1,500 MG in SODIUM CHLORID 0.9% 500 ML INJ 500 ML IV SCH (11:38)
[2016-06-29] MEDS ORDERED: VANCOMYCIN 500 MG/NS 100 ML IV ONE ×2 (13:15)
[2016-06-29] MEDS ORDERED: VANCOMYCIN 500 MG/NS 100 ML IV SCH ×2 (13:15)
[2016-06-29 16:20] VITALS: BP 176/86; PULSE 83; RESP 19; O2SAT 96
--- NOTE | 2016-06-29 17:11 | RADRPT ---
EXAM DATE/TIME: 06/29/2016 16:14 [place] COMPARISON: No previous studies available for comparison. INDICATIONS : Eval heart and lungs post PICC placement. MEDICAL HISTORY : Hypertension. Diabetes mellitus type II. SURGICAL HISTORY : None. ENCOUNTER: Initial ACUITY: 1 day PAIN SCORE: 0/10 LOCATION: chest FINDINGS: The lungs are clear. Cardiomediastinal silhouette within normal limits. No evidence of pleural effusi on or pneumothorax. Right-sided PICC line in place with the tip at the cavoatrial junction. CONCLUSION: No acute cardiopulmonary disease identified. Pro Ribeiro MD on June 29, 2016 at 17:09 Board Certified Radiologist. This report was verified electronically.
[2016-06-29] MEDS: LISINOPRIL 10 MG TAB PO SCH ×2 (17:26→20:16)
[2016-06-29 19:39] VITALS: BP 156/83; PULSE 86; RESP 20; TEMP 98; O2SAT 95
[2016-06-29] MEDS: INSULIN DETEMIR 100 UNITS/ML VIAL SQ SCH (20:15)
[2016-06-29] MEDS: ENOXAPARIN SODIUM 30 MG/0.3 ML SYRINGE SQ SCH (20:15)
[2016-06-29] MEDS: GABAPENTIN 100 MG CAP PO SCH (20:16)
[2016-06-29] MEDS: ATORVASTATIN 80 MG TAB PO SCH (20:16)
[2016-06-29 23:49] VITALS: BP 141/87; PULSE 85; RESP 20; TEMP 97.6; O2SAT 97
[2016-06-30] MEDS: HYDROmorphone HCL PF 1 MG/ML VIAL IV PRN ×4 (00:45→10:06)
[2016-06-30 03:28] VITALS: BP 161/89; PULSE 90; RESP 20; TEMP 98.3; O2SAT 98
[2016-06-30] MEDS: GEMFIBROZIL 600 MG TAB PO SCH ×2 (06:37→16:43)
[2016-06-30] MEDS: INSULIN ASPART SUPPLEMENTAL SCALE SQ SCH ×4 (06:42→20:10)
[2016-06-30 08:00] VITALS: BP 130/82; PULSE 83; RESP 18; TEMP 97.1; O2SAT 96
[2016-06-30] MEDS: GLIMEPIRIDE 4 MG TAB PO SCH (09:00)
[2016-06-30] MEDS: CHOLECALCIFEROL (VIT D3) 5000 UNIT CAP PO SCH (09:00)
[2016-06-30] MEDS: MULTIVITAMIN HEMATINIC THERAPEUTIC TAB PO SCH (09:00)
[2016-06-30] MEDS: LOSARTAN 50 MG TAB PO SCH (09:00)
[2016-06-30] MEDS: LISINOPRIL 10 MG TAB PO SCH ×2 (09:00→20:08)
[2016-06-30] MEDS: SODIUM CHLORIDE 0.9% FLUSH 5 ML FLUSH FLUSH SCH ×2 (09:00→20:08)
[2016-06-30] MEDS ORDERED: PHARMACY ORDERED LAB XX ONE (09:45)
[2016-06-30] MEDS: VANCOMYCIN INJ 2,000 MG in SODIUM CHLORID 0.9% 500 ML INJ 500 ML IV SCH (09:59)
[2016-06-30] MEDS: DOCUSATE SODIUM 100 MG CAP PO SCH ×2 (11:16→20:08)
[2016-06-30] MEDS: ACETAMINOPHEN/HYDROcodone 325 MG/5 MG TAB PO PRN ×2 (11:17→18:28)
[2016-06-30] MEDS: MUPIROCIN 2% OINT 22 GM TUBE TOPICAL SCH ×2 (11:20→20:10)
[2016-06-30 12:02] VITALS: BP 140/81; PULSE 84; RESP 18; TEMP 97.3; O2SAT 96
--- NOTE | 2016-06-30 14:03 | HHI.PR ---
Subjective Remarks No new complaints. Objective Vitals Vital Signs Date Time Temp Pulse Resp B/P Pulse Ox O2 Delivery O2 Flow Rate FiO2 06/30/16 12:17 14 06/30/16 12:02 97.3 84 18 140/81 96 06/30/16 08:00 97.1 83 18 130/82 96 06/30/16 07:08 14 06/30/16 03:28 98.3 90 20 161/89 98 06/29/16 23:49 97.6 85 20 141/87 97 06/29/16 19:39 98.0 86 20 156/83 95 06/29/16 16:20 83 19 176/86 96 06/29/16 06/29/16 06/30/16 15:00 23:00 07:00 Output Total 500 ml 700 ml Balance -500 ml -700 ml Output Urine Total 500 ml 700 ml # Voids 1 1 Result Diagram: 06/29/16 0510 06/29/16 0510 Imaging Last Impressions Foot X-Ray 06/28/16 0000 Signed Impressions: Service Date/Time: June 09:18 - CONCLUSION: Proximal third fourth and fifth metatarsal fracture deformities with evidence of advanced bone bridging/bone callus. No evidence of bone erosion. Pro Ribeiro MD Foot MRI 06/28/16 0000 Signed Impressions: Service Date/Time: June 15:01 - CONCLUSION: 1. Old fracture deformity of the proximal fifth metatarsal base with extensive bone callus. This finding may have represented a traumatic fracture or stress fracture. 2. Ill-defined soft tissue edema and enhancement lateral to the fifth metatarsal fracture. Cutaneous ulceration also seen in this region. Findings suggest cellulitis in the proper clinical setting. No evidence of abscess in the soft tissues. Mild adjacent bony edema in the lateral dorsal aspect of the proximal fifth metatarsal shaft. Differential for this finding is reactive change from adjacent soft tissue infection versus early osteomyelitis. No confluent signal abnormality on the precontrast T1-weighted images to indicate definitive osteomyelitis. 3. Second metatarsal base fracture likely acute to subacute. Pro Ribeiro MD Objective Remarks General: NAD, AAox3 Chest: CTA bilaterally Cardiac: Regular Abd: +BS, soft ND/NT Ext: Left foot bandages are c/d/i, 2+ pedal pulses bilaterally A/P Problem List: (1) Diabetic foot ulcer Status: Acute Plan: - Pt admitted with left foot ulceration and cellulitis - WBC count 12.7 at admission. - Pt was started on Zosyn and Vancomycin in the ED and this was continued at admission. - Appreciate Podiatry consultation. - X-ray left foot (06/28/16) --> Proximal third fourth and fifth metatarsal fracture deformities with evidence of advanced bone bridging/bone callus. No evidence of bone erosion. - MRI Left foot (06/28/16) --> Old fracture deformity of the proximal fifth metatarsal base with extensive bone callus. This finding may have represented a traumatic fracture or stress fracture. Ill- defined soft tissue edema and enhancement lateral to the fifth metatarsal fracture. Cutaneous ulceration also seen in this region. No evidence of abscess in the soft tissues. Mild adjacent bony edema in the lateral dorsal aspect of the proximal fifth metatarsal shaft. Differential for this finding is reactive change from adjacent soft tissue infection versus early osteomyelitis. Second metatarsal base fracture likely acute to subacute. - PICC placed (06/29/16) - Pt will need IV Vancomycin x weeks for presumptive early osteomyelitis - Blood cultures (06/27/16) --> NO growth at 3 days - anticipate d/c to home with [facility] on 07/02/16 - DVT prophylaxis Lovenox (2) Uncontrolled diabetes mellitus Status: Chronic Plan: - Pt with poorly controlled diabetes - Currently he is on Amaryl 4mg po daily, Levemir 40 units HS and high dose NovoLog SSI - will increase amaryl to 4mg AM and 2mg PM - Diabetic diet - Accu checks - Hgb A1C is 15.9% - Pt will need close followup with his PCP for maintaining better control of his blood sugars. (3) Hypertension Status: Chronic Plan: - Stable. - Continue Losartan Problem Qualifiers (1) Uncontrolled diabetes mellitus: Qualified Code: E11.621 - Uncontrolled type 2 diabetes mellitus with foot ulcer , without long-term current use of insulin (2) Hypertension: Qualified Code: I10 - Essential hypertension Taco Villela DO Jun 30, 2016 14:03
[2016-06-30 16:52] VITALS: BP 139/83; PULSE 82; RESP 18; TEMP 95.8; O2SAT 97
[2016-06-30] MEDS ORDERED: GLIMEPIRIDE 2 MG TAB PO SCH (18:00)
[2016-06-30] MEDS ORDERED: VANCOMYCIN 500 MG/NS 100 ML IV ONE ×2 (18:00)
[2016-06-30 20:00] VITALS: BP 157/87; PULSE 83; RESP 20; TEMP 96.8; O2SAT 94
[2016-06-30] MEDS: GABAPENTIN 100 MG CAP PO SCH (20:08)
[2016-06-30] MEDS: INSULIN DETEMIR 100 UNITS/ML VIAL SQ SCH (20:08)
[2016-06-30] MEDS: ATORVASTATIN 80 MG TAB PO SCH (20:08)
[2016-06-30] MEDS: ENOXAPARIN SODIUM 30 MG/0.3 ML SYRINGE SQ SCH (20:09)
[2016-07-01] VITALS: BP 136/74; PULSE 84; RESP 20; TEMP 97.6; O2SAT 96
[2016-07-01] MEDS: ACETAMINOPHEN/HYDROcodone 325 MG/5 MG TAB PO PRN ×4 (01:37→22:22)
[2016-07-01 04:58] LABS: AUTOMATED NEUTROPHIL # 4.3 TH/MM3 (1.8-7.7); BASOPHIL % 0.7 % (0.0-2.0); EOSINOPHIL # 0.2 TH/MM3 (0-0.4); EOSINOPHIL % 2.5 % (0.0-4.0); HEMO FLAGS DIFF FINAL; LYMPH % 24.7 % (9.0-44.0); LYMPHOCYTE # 1.7 TH/MM3 (1.0-4.8); MEAN CELL VOLUME 82.6 FL (80.0-100.0); MEAN CORPUSCULAR HEMOGLOBIN 28.5 PG (27.0-34.0); MEAN CORPUSCULAR HGB CONC 34.5 % (32.0-36.0); MONO % 10.2 % (0.0-8.0); NEUT % 61.9 % (16.0-70.0); PLATELET COUNT 206 TH/MM3 (150-450); RED BLOOD COUNT 4.24 MIL/MM3 (4.50-5.90); RED CELL DISTRIBUTION WIDTH 12.7 % (11.6-17.2)
[2016-07-01 05:16] LABS: BICARBONATE 27.1 MEQ/L (21.0-32.0); MAGNESIUM 1.8 MG/DL (1.5-2.5); POTASSIUM 4.1 MEQ/L (3.5-5.1)
[2016-07-01] MEDS: INSULIN ASPART SUPPLEMENTAL SCALE SQ SCH ×4 (06:05→20:21)
[2016-07-01] MEDS: GEMFIBROZIL 600 MG TAB PO SCH ×2 (06:05→10:06)
[2016-07-01 08:00] VITALS: BP 138/74; PULSE 73; RESP 16; TEMP 97.9; O2SAT 98
[2016-07-01] MEDS: LOSARTAN 50 MG TAB PO SCH (10:06)
[2016-07-01] MEDS: GLIMEPIRIDE 4 MG TAB PO SCH ×2 (10:07→16:04)
[2016-07-01] MEDS: CHOLECALCIFEROL (VIT D3) 5000 UNIT CAP PO SCH (10:07)
[2016-07-01] MEDS: SODIUM CHLORIDE 0.9% FLUSH 5 ML FLUSH FLUSH SCH ×2 (10:07→20:17)
[2016-07-01] MEDS: MULTIVITAMIN HEMATINIC THERAPEUTIC TAB PO SCH (10:07)
[2016-07-01] MEDS: DOCUSATE SODIUM 100 MG CAP PO SCH ×2 (10:07→20:16)
[2016-07-01] MEDS: LISINOPRIL 10 MG TAB PO SCH ×2 (10:07→20:17)
[2016-07-01] MEDS: VANCOMYCIN INJ 2,000 MG in SODIUM CHLORID 0.9% 500 ML INJ 500 ML IV SCH (10:08)
[2016-07-01] MEDS: MUPIROCIN 2% OINT 22 GM TUBE TOPICAL SCH ×2 (10:08→20:21)
[2016-07-01 12:00] VITALS: BP 128/70; PULSE 76; RESP 18; TEMP 98.1; O2SAT 98
--- NOTE | 2016-07-01 12:27 | HHI.PR ---
Subjective Remarks No new complaints. Objective Vitals Vital Signs Date Time Temp Pulse Resp B/P Pulse Ox O2 Delivery O2 Flow Rate FiO2 07/01/16 08:00 97.9 73 16 138/74 98 07/01/16 02:37 18 07/01/16 00:00 97.6 84 20 136/74 96 06/30/16 20:00 96.8 83 20 157/87 94 06/30/16 16:52 95.8 82 18 139/83 97 06/30/16 06/30/16 07/01/16 15:00 23:00 07:00 Intake Total 1000 ml 320 ml 480 ml Output Total 675 ml Balance 325 ml 320 ml 480 ml Intake Oral 1000 ml 320 ml 480 ml Output Urine Total 675 ml # Voids 3 1 2 # Bowel Movements 1 1 Result Diagram: 07/01/16 0419 07/01/16 0419 Imaging Last Impressions Foot X-Ray 06/28/16 0000 Signed Impressions: Service Date/Time: June 09:18 - CONCLUSION: Proximal third fourth and fifth metatarsal fracture deformities with evidence of advanced bone bridging/bone callus. No evidence of bone erosion. Pro Ribeiro MD Foot MRI 06/28/16 0000 Signed Impressions: Service Date/Time: June 15:01 - CONCLUSION: 1. Old fracture deformity of the proximal fifth metatarsal base with extensive bone callus. This finding may have represented a traumatic fracture or stress fracture. 2. Ill-defined soft tissue edema and enhancement lateral to the fifth metatarsal fracture. Cutaneous ulceration also seen in this region. Findings suggest cellulitis in the proper clinical setting. No evidence of abscess in the soft tissues. Mild adjacent bony edema in the lateral dorsal aspect of the proximal fifth metatarsal shaft. Differential for this finding is reactive change from adjacent soft tissue infection versus early osteomyelitis. No confluent signal abnormality on the precontrast T1-weighted images to indicate definitive osteomyelitis. 3. Second metatarsal base fracture likely acute to subacute. Pro Ribeiro MD Objective Remarks General: NAD, AAox3 Chest: CTA bilaterally Cardiac: Regular Abd: +BS, soft ND/NT Ext: Left foot bandages are c/d/i, 2+ pedal pulses bilaterally A/P Problem List: (1) Diabetic foot ulcer Status: Acute Plan: - Pt admitted with left foot ulceration and cellulitis - WBC count 12.7 at admission. - Pt was started on Zosyn and Vancomycin in the ED and this was continued at admission. - Appreciate Podiatry consultation. - X-ray left foot (06/28/16) --> Proximal third fourth and fifth metatarsal fracture deformities with evidence of advanced bone bridging/bone callus. No evidence of bone erosion. - MRI Left foot (06/28/16) --> Old fracture deformity of the proximal fifth metatarsal base with extensive bone callus. This finding may have represented a traumatic fracture or stress fracture. Ill- defined soft tissue edema and enhancement lateral to the fifth metatarsal fracture. Cutaneous ulceration also seen in this region. No evidence of abscess in the soft tissues. Mild adjacent bony edema in the lateral dorsal aspect of the proximal fifth metatarsal shaft. Differential for this finding is reactive change from adjacent soft tissue infection versus early osteomyelitis. Second metatarsal base fracture likely acute to subacute. - PICC placed (06/29/16) - Pt will need IV Vancomycin x weeks for presumptive early osteomyelitis - Blood cultures (06/27/16) --> NO growth at 4 days - anticipate d/c to home with C on 07/02/16 - DVT prophylaxis Lovenox (2) Uncontrolled diabetes mellitus Status: Chronic Plan: - Pt with poorly controlled diabetes - HgA1C 15.9 - increase amaryl to 4mg BID - start metformin at 500mg BID, consider increase - change levemir from 40units hs to 22 units BID - SSI - observe blood sugar readings - anticipate d/c to home 07/02/16 (3) Hypertension Status: Chronic Plan: - Stable. - Continue Losartan Problem Qualifiers (1) Uncontrolled diabetes mellitus: Qualified Code: E11.621 - Uncontrolled type 2 diabetes mellitus with foot ulcer , without long-term current use of insulin (2) Hypertension: Qualified Code: I10 - Essential hypertension Taco Villela DO Jul 01, 2016 12:27
[2016-07-01 16:00] VITALS: BP 143/90; PULSE 74; RESP 18; TEMP 98.2; O2SAT 97
[2016-07-01] MEDS: metFORMIN HCL 500 MG TAB PO SCH (17:58)
[2016-07-01 20:00] VITALS: BP 142/92; PULSE 83; RESP 20; TEMP 97.1; O2SAT 97
[2016-07-01] MEDS: ENOXAPARIN SODIUM 30 MG/0.3 ML SYRINGE SQ SCH (20:16)
[2016-07-01] MEDS: ATORVASTATIN 80 MG TAB PO SCH (20:16)
[2016-07-01] MEDS: INSULIN DETEMIR 100 UNITS/ML VIAL SQ SCH (20:17)
[2016-07-01] MEDS: GABAPENTIN 100 MG CAP PO SCH (20:17)
[2016-07-02] VITALS: BP 118/65; PULSE 72; RESP 20; TEMP 97.8; O2SAT 98
[2016-07-02] MEDS: ACETAMINOPHEN/HYDROcodone 325 MG/5 MG TAB PO PRN ×2 (04:16→11:48)
[2016-07-02] MEDS: GEMFIBROZIL 600 MG TAB PO SCH (05:59)
[2016-07-02] MEDS: GLIMEPIRIDE 4 MG TAB PO SCH (05:59)
[2016-07-02] MEDS: INSULIN ASPART SUPPLEMENTAL SCALE SQ SCH ×2 (06:00→11:45)
[2016-07-02] MEDS ORDERED: PHARMACY ORDERED LAB XX ONE (07:45)
[2016-07-02] MEDS: LISINOPRIL 10 MG TAB PO SCH (07:50)
[2016-07-02] MEDS: metFORMIN HCL 500 MG TAB PO SCH (07:50)
[2016-07-02] MEDS: DOCUSATE SODIUM 100 MG CAP PO SCH (07:50)
[2016-07-02] MEDS: CHOLECALCIFEROL (VIT D3) 5000 UNIT CAP PO SCH (07:50)
[2016-07-02] MEDS: LOSARTAN 50 MG TAB PO SCH (07:50)
[2016-07-02] MEDS: MULTIVITAMIN HEMATINIC THERAPEUTIC TAB PO SCH (07:50)
[2016-07-02] MEDS: MUPIROCIN 2% OINT 22 GM TUBE TOPICAL SCH (07:51)
[2016-07-02] MEDS: INSULIN DETEMIR 100 UNITS/ML VIAL SQ SCH (07:51)
[2016-07-02] MEDS: VANCOMYCIN INJ 2,000 MG in SODIUM CHLORID 0.9% 500 ML INJ 500 ML IV SCH (07:51)
[2016-07-02] MEDS: SODIUM CHLORIDE 0.9% FLUSH 5 ML FLUSH FLUSH SCH (07:51)
[2016-07-02 08:00] VITALS: BP 141/79; PULSE 76; RESP 16; TEMP 97.3; O2SAT 97
[2016-07-02] MEDS ORDERED: LEVEMIR SQ (08:32)
[2016-07-02] MEDS ORDERED: LISI10TA3 PO (08:32)
[2016-07-02] MEDS ORDERED: METF500 PO (08:32)
[2016-07-02] MEDS ORDERED: GLIM4TAB PO (08:32)
--- NOTE | 2016-07-02 08:52 | HHI.DS ---
Discharge Summary Admission Date Jun 27, 2016 at 18:55 Discharge Date: Jul 02, 2016 Admitting Diagnosis diabetic foot ulcer/hyperglycemia (1) Diabetic foot ulcer Diagnosis: Principal (2) Uncontrolled diabetes mellitus Diagnosis: Secondary (3) Hypertension Diagnosis: Secondary Consultants Dr. Mindy Johnson -Podiatry Brief History 45 y/o white male with history of diabetes with chronic left foot ulcer draining has had some debridement today and podiatry sent patient for admit and requests MRI and IV antibiotics. Patient with long standing dibetes and has had difficulty with insurance with coverage for medications is on flex pen and lantus and glucose is over 600. Patient does have pain to left foot with large ulcer draining and now has bandage. CBC/BMP: 07/01/16 0419 07/01/16 0419 Significant Findings Laboratory Tests Test 07/01/16 04:19 Red Blood Count 4.24 MIL/MM3 (4.50-5.90) Hemoglobin 12.1 GM/DL (13.0-17.0) Hematocrit 35.0 % (39.0-51.0) Monocytes (%) (Auto) 10.2 % (0.0-8.0) Blood Urea Nitrogen 27 MG/DL (7-18) Estimat Glomerular Filtration 70 ML/MIN (>89) Rate Random Glucose 191 MG/DL (74-106) Imaging Last Impressions Chest X-Ray 06/29/16 0000 Signed Impressions: Service Date/Time: Wednesday, June 29, 2016 16:14 - CONCLUSION: No acute cardiopulmonary disease identified. Pro Ribeiro MD Foot X-Ray 06/28/16 0000 Signed Impressions: Service Date/Time: June 09:18 - CONCLUSION: Proximal third fourth and fifth metatarsal fracture deformities with evidence of advanced bone bridging/bone callus. No evidence of bone erosion. Pro Ribeiro MD Foot MRI 06/28/16 0000 Signed Impressions: Service Date/Time: June 15:01 - CONCLUSION: 1. Old fracture deformity of the proximal fifth metatarsal base with extensive bone callus. This finding may have represented a traumatic fracture or stress fracture. 2. Ill-defined soft tissue edema and enhancement lateral to the fifth metatarsal fracture. Cutaneous ulceration also seen in this region. Findings suggest cellulitis in the proper clinical setting. No evidence of abscess in the soft tissues. Mild adjacent bony edema in the lateral dorsal aspect of the proximal fifth metatarsal shaft. Differential for this finding is reactive change from adjacent soft tissue infection versus early osteomyelitis. No confluent signal abnormality on the precontrast T1-weighted images to indicate definitive osteomyelitis. 3. Second metatarsal base fracture likely acute to subacute. Pro Ribeiro MD PE at Discharge General: NAD, AAox3 Chest: CTA bilaterally Cardiac: Regular Abd: +BS, soft ND/NT Ext: Left foot bandages are c/d/i, 2+ pedal pulses bilaterally Hospital Course Pt was admitted with left foot ulceration and cellulitis. WBC count was 12.7 at admission. Pt was started on Zosyn and Vancomycin in the ED and this was continued at admission. Podiatry was consulted. X-ray left foot (06/28/16) which noted proximal third fourth and fifth metatarsal fracture deformities with evidence of advanced bone bridging/bone callus, no evidence of bone erosion. MRI Left foot (06/28/16) noted old fracture deformity of the proximal fifth metatarsal base with extensive bone callus. This finding may have represented a traumatic fracture or stress fracture. Ill-defined soft tissue edema and enhancement lateral to the fifth metatarsal fracture. Cutaneous ulceration also seen in this region. No evidence of abscess in the soft tissues. Mild adjacent bony edema in the lateral dorsal aspect of the proximal fifth metatarsal shaft. Differential for this finding is reactive change from adjacent soft tissue infection versus early osteomyelitis. Second metatarsal base fracture likely acute to subacute. PICC placed (06/29/16). Pt will need IV Vancomycin x 5 more weeks for presumptive early osteomyelitis. Blood cultures (06/27/16) with NO growth to date. Pt with poorly controlled diabetes, and HgA1C 15.9. At home he was on Amaryl 4mg po daily, Lantus 40 units HS and SSI. During this admission we increased Amaryl to 4mg BID, started metformin at 500mg BID, and changed Levemir from 40units hs to 22 units BID along with high dose SSI. BS readings are slowly improving. He will need continued close followup and likely medication adjustments as an outpt. Pt will be discharged on Amaryl 4mg BID, metformin 500mg BID, and Levemir 22 units BID. His SSI insulin may need to be adjusted to a higher dose as an outpt as well. Pt will be discharged on Vancomycin 2grams IV daily until 08/11/16 He will need weekly CBC, CMP, Vancomycin peaks/troughs (to be managed by pharmacy) and labs will be sent to the pts PCP for close monitoring. Pt will be followed by [facility] as an outpt for IV Abx and wound care Followup with his PCP, Dr. Box, has been scheduled for 07/04/16 @ 2:45PM. I spoke with Dr. Box's nurse and provided her with updated information on the pt We will be providing the pt with a new glucometer. Pt will need to followup with Dr. Johnson this week. Pt Condition on Discharge: Stable Discharge Disposition: Disch w/ Home Health Serv Discharge Instructions DIET: Follow Instructions for: Diabetic Diet Activities you can perform: Weight Bearing as Jose Follow up Referrals: PCP Follow-up - [address] Yuliya Box Podiatry - 3-5 Days with Mindy Johnson DPM New Medications: Vancomycin Inj (Vancomycin Inj) 1,000 Mg Inj 2000 MG IV DAILY Infection Days 42 Ref 0 BAG Insulin Detemir Inj (Levemir Inj) 1,000 unit/ 10 ML Vial 22 UNITS SQ BID Blood Sugar Management Days 30 INJECTION Lisinopril (Lisinopril) 10 Mg Tab 10 MG PO Q12HR Blood Pressure Management #62 TAB Metformin (Glucophage) 500 Mg Tab 500 MG PO BIDPC Blood Sugar Management #62 TAB Changed Medications: Glimepiride (Glimepiride) 4 Mg Tab 4 MG PO BID Take with breakfast or first main meal Blood Sugar Management #30 Ref 0 TAB (Changed from: DAILY) Continued Medications: Cholecalciferol (Vitamin D3) 10,000 Unit Cap 89659 UNITS PO DAILY Nutritional Supplement #1 Ref 0 BOTTLE Gabapentin (Gabapentin) 100 Mg Cap 200 MG PO HS #60 Ref 0 CAP Gemfibrozil (Gemfibrozil) 600 Mg Tab 600 MG PO BIDAC Take 30 minutes prior to breakfast and dinner. #60 Ref 0 TAB Insulin Aspart Inj (Novolog Flexpen Inj) 300 Unit/3 Ml Pen UNITS SQ TID Blood Sugar Management #1 Ref 0 PEN Losartan (Losartan) 50 Mg Tab 50 MG PO DAILY Blood Pressure Management #30 Ref 0 TAB Multiple Vitamins W/ Minerals (Multi For Him 50+) 1 Tab Tab 1 TAB PO DAILY Rosuvastatin (Crestor) 40 Mg Tab 40 MG PO HS Cholesterol Management #30 Ref 0 TAB Discontinued Medications: Insulin Glargine Inj (Lantus Solostar Pen Inj) 300 Unit/3 Ml Pen 40 UNITS SQ HS Blood Sugar Management Ref 0 PEN Deirdre Flanagan Jul 02, 2016 08:52 Norman Hart MD Jul 02, 2016 20:13
[2016-07-02 12:00] VITALS: BP 137/72; PULSE 78; RESP 18; TEMP 96.7; O2SAT 97
[2016-07-03] MEDS ORDERED: VANCOMYCIN INJ 2,500 MG in SODIUM CHLORID 0.9% 500 ML INJ 500 ML IV SCH (08:00)
== END 2016-07-02 14:40 | disposition home health service (06) | DRG 638 ==
LOC: NEPC 16:42 → NEDA 18:55 → NEPFCDU 22:18 → N07B 06-30 17:20
PROVIDERS: ADMIT Hospitalist; ATTEND Hospitalist
PROC: 0HDNXZZ Extraction of Left Foot Skin, External Approach (ICD-10-PCS; 2016-06-28)
PROC: 02HV33Z Insertion of Infusion Device into Superior Vena Cava, Percutaneous Approach (ICD-10-PCS; principal; 2016-06-29)
DX: E11.69 Type 2 diabetes mellitus with other specified complication (principal); M86.9 Osteomyelitis, unspecified; E11.621 Type 2 diabetes mellitus with foot ulcer; E11.65 Type 2 diabetes mellitus with hyperglycemia; L03.116 Cellulitis of left lower limb; L97.529 Non-pressure chronic ulcer of other part of left foot with unspecified severity; E78.5 Hyperlipidemia, unspecified; I10 Essential (primary) hypertension; G62.9 Polyneuropathy, unspecified; E11.628 Type 2 diabetes mellitus with other skin complications; X58.XXXD Exposure to other specified factors, subsequent encounter; S92.345D Nondisplaced fracture of fourth metatarsal bone, left foot, subsequent encounter for fracture with routine healing; S92.335D Nondisplaced fracture of third metatarsal bone, left foot, subsequent encounter for fracture with routine healing; S92.355D Nondisplaced fracture of fifth metatarsal bone, left foot, subsequent encounter for fracture with routine healing; S92.325A Nondisplaced fracture of second metatarsal bone, left foot, initial encounter for closed fracture; X58.XXXA Exposure to other specified factors, initial encounter; Y93.9 Activity, unspecified; Y92.9 Unspecified place or not applicable; Z79.4 Long term (current) use of insulin; Z23 Encounter for immunization
CPT/HCPCS: 36569; 71010; 73630; 73720; 76937; 80048; 80053; 80202; 82947; 82948; 83036; 83605; 83735; 85025; 87040; 90686; 96361; 96365; A9579; J1170; J1642; J1650; J1815; J2543; J3370; J7030; J7040; J7050; Q2038